=== PATIENT | male | born 2005 | race Caucasian/White ===

== ENCOUNTER 2025-08-10 07:16 | Emergency (ER) | payer OTHER ==
[~2025-08-10] VITALS: Ht 182.9 cm; Wt 88.2 kg
[2025-08-10] MEDS ORDERED: VENL75CA47 PO (07:23)
[2025-08-10] MEDS: ONDANSETRON 4MG ORAL DISINTEGRATING TAB PO ONE (08:04)
[2025-08-10 09:14] VITALS: TEMP 98.9
[2025-08-10] MEDS: ACETAMINOPHEN 500 MG TAB PO ONE (09:23)
[2025-08-10 09:45] VITALS: BP 119/63; O2SAT 96
[2025-08-10] MEDS ORDERED: AMOX500T PO (09:46)
== END 2025-08-10 09:57 | disposition home or self-care (01) ==
LOC: M ED 07:16
DX: R05.9 Cough, unspecified (principal)

== ENCOUNTER 2025-08-15 09:43 | Emergency (ER) | payer OTHER ==
[~2025-08-15] VITALS: Ht 182.9 cm; Wt 85.5 kg
[~2025-08-15 09:43] MED LIST: AMOX500T PO; VENL75CA47 PO
[2025-08-15 09:45] VITALS: BP 127/79; TEMP 98.8; O2SAT 97
== END 2025-08-15 10:46 | disposition left against medical advice (07) ==
LOC: M ED 09:43
DX: Z53.21 Procedure and treatment not carried out due to patient leaving prior to being seen by health care provider (principal)